=== PATIENT | female | born 1970 | race Caucasian/White ===

== ENCOUNTER 2017-03-07 09:14 | Emergency (ER) | payer BC ==
[~2017-03-07] VITALS: Ht 162.6 cm; Wt 69.0 kg
[2017-03-07 11:39] VITALS: BP 130/64
== END 2017-03-07 11:39 | disposition home or self-care (01) ==
LOC: ED 09:14
DX: M25.561 Pain in right knee (principal); E78.00 Pure hypercholesterolemia, unspecified; Z79.899 Other long term (current) drug therapy
CPT/HCPCS: J1100; J1885

== ENCOUNTER 2018-04-09 22:01 | Emergency (ER) | payer BC ==
[~2018-04-09] VITALS: Ht 162.6 cm; Wt 68.0 kg
[2018-04-09 22:02] VITALS: Ht 162.6 cm; Wt 68.0 kg
[2018-04-09 22:31] LABS: BASOPHIL % 0.9 % (0-2); PLATELET COUNT 310 x10^3mcL (130-400); RED CELL DISTRIBUTION WIDTH 12.4 % (11.5-14.5)
[2018-04-09 22:44] LABS: CALCIUM 9.3 mg/dL (8.5-10.1); CARBON DIOXIDE 26.9 mmol/L (21-32); CHLORIDE SERUM 106 mmol/L (98-107); CREATININE SERUM 0.9 mg/dL (0.6-1.0); GFR1 > 60 mL/min; GLUCOSE SERUM 145 mg/dL (74-106); POTASSIUM SERUM 3.4 mmol/L (3.5-5.1); SODIUM SERUM 142 mmol/L (136-145)
[2018-04-09 22:47] LABS: MAGNESIUM 2.1 mg/dL (1.8-2.4)
[2018-04-09 22:53] LABS: CK-MB 2.2 ng/mL (0-3.6)
[2018-04-09 23:05] LABS: microscopic required? NO
[2018-04-09 23:15] LABS: urine erythrocyte NEGATIVE (NEGATIVE)
[2018-04-09 23:37] VITALS: BP 130/75
== END 2018-04-09 23:37 | disposition home or self-care (01) ==
LOC: ED 22:01
PROVIDERS: Emergency Medicine
PROC: 3E033GC Introduction of Other Therapeutic Substance into Peripheral Vein, Percutaneous Approach (ICD-10-PCS; principal; 2018-04-09)
DX: F41.0 Panic disorder [episodic paroxysmal anxiety] (principal); R06.02 Shortness of breath; E78.00 Pure hypercholesterolemia, unspecified
CPT/HCPCS: 83880; J2060; Q0092